=== PATIENT | male | born 1990 | race Caucasian/White ===

== ENCOUNTER 2016-10-11 17:45 | Emergency (ER) | payer OTHER ==
[~2016-10-11] VITALS: Ht 185.4 cm; Wt 95.3 kg
[~2016-10-11 17:45] MED LIST: ABILIFY 2 MG2 M1 PO; ADDERALL 15 MG15 MG PO; BUPROPION XL300 MG PO; CIALIS5 MG PO; CIPRO500 MG PO; CLONAZEPAM 1 MG1 M1 PO; CONCERTA54 M1 PO; DESYREL150 MG PO; FLAGYL500 MG PO; IBUPROFEN 400400 M2; IBUPROFEN 600600 M1 PO; LITHOBID PO; NEFAZODONE HCL50 MG PO; NORCO 5-325 TA1 EACH PO; ONDANSETRON HCL4 M2 PO; ROXICODONE PO; ROXICODONE30 MG PO; XANAX XR1 MG PO; XANAX1 MG PO; ZOFRAN ODT4 MG PO
[2016-10-11] MEDS ORDERED: LAMICTAL100 MG PO (18:06)
[2016-10-11] MEDS ORDERED: LUVOX 50MG TABL50 M1 PO (18:07)
[2016-10-11 18:41] LABS: ABSOLUTE NEUTROPHILS 4.2 thou/uL (1.4-8.2); BASOPHILS 0.6 % (0.0-2.0); EOSINOPHILS 1.9 % (0.0-3.0); HEMATOCRIT 41.6 % (42.0-52.0); HEMOGLOBIN 14.6 gm/dL (14.0-18.0); LYMPHOCYTES 28.9 % (24.0-44.0); MCHC 35.1 g/dL (28.0-37.0); MCV 88.4 fL (80.0-100.0); MONOCYTES 8.3 % (1.0-8.0); PLATELET COUNT 272 thou/uL (150-400); POLYS 60.3 % (36.0-66.0); RBC 4.71 mil/uL (4.50-6.00); RDW 12.8 % (10.5-14.5); WBC 6.9 thou/uL (4.0-11.0)
[2016-10-11 18:42] LABS: MANUAL DIFF NO
[2016-10-11 18:54] LABS: ANION GAP 10 mmol/L (7-16); BUN 11 mg/dL (7-18); CHLORIDE 105 mmol/L (98-107); CO2 25 mmol/L (21-32); GLUCOSE 88 mg/dL (74-106); POTASSIUM 3.9 mmol/L (3.5-5.1); SODIUM 140 mmol/L (136-145)
[2016-10-11 18:56] LABS: ALBUMIN 4.1 g/dL (3.4-5.0); ALKALINE PHOSPHATASE 72 U/L (46-116); SALICYLATE < 2.8 mg/dL (2.8-20.0); SGOT 19 U/L (15-37); SGPT 36 U/L (30-65); TOTAL BILIRUBIN 0.4 mg/dL (<0.1-1.0); TOTAL PROTEIN 7.5 g/dL (6.4-8.2)
[2016-10-11 18:57] LABS: ACETAMINOPHEN < 2 ug/mL (10-30)
[2016-10-11 20:09] LABS: URINE BILIRUBIN NEGATIVE (Negative); URINE BLOOD NEGATIVE (Negative); URINE COLOR YELLOW; URINE GLUCOSE-RANDOM* NEGATIVE (Negative); URINE KETONES NEGATIVE (Negative); URINE NITRITE NEGATIVE (Negative); URINE PROTEIN (DIPSTICK) NEGATIVE (Negative); URINE SPECIFIC GRAVITY 1.025 (1.003-1.035); URINE UROBILINOGEN 0.2 E.U./dl (0.2-1.0)
[2016-10-11 20:18] LABS: AMP/METHAMP Negative (Negative); BARBITURATES Negative (Negative); BENZODIAZEPINES Negative (Negative); COCAINE Negative (Negative); METHADONE Negative (Negative); OPIATES Negative (Negative); PCP Negative (Negative); THC Negative (Negative)
[2016-10-11] MEDS ORDERED: CLONAZEPAM 1 MG1 M1 PO (21:44)
[2016-10-11 21:55] VITALS: BP 121/77
== END 2016-10-11 21:56 | disposition home or self-care (01) ==
LOC: ER 17:45
PROVIDERS: Nurse Practitioner Family
DX: R45.851 Suicidal ideations (principal); F41.9 Anxiety disorder, unspecified; F31.9 Bipolar disorder, unspecified; F43.10 Post-traumatic stress disorder, unspecified; F10.99 Alcohol use, unspecified with unspecified alcohol-induced disorder

== ENCOUNTER 2017-09-15 14:11 | Emergency (ER) | payer OTHER ==
[~2017-09-15] VITALS: Ht 185.4 cm; Wt 106.6 kg
--- NOTE | ~2017-09-15 | EKG ---
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
[~2017-09-15 14:11] MED LIST changes: +LAMICTAL100 MG PO; +LUVOX 50MG TABL50 M1 PO
[2017-09-15] MEDS ORDERED: ZYPREXA 10 MG T10 MG PO (14:17)
[2017-09-15] MEDS ORDERED: INDERAL40 MG PO (14:18)
[2017-09-15] MEDS ORDERED: SONATA10 MG PO (14:18)
[2017-09-15 14:53] LABS: ABSOLUTE NEUTROPHILS 4.9 thou/uL (1.4-8.2); BASOPHILS 0.4 % (0.0-2.0); EOSINOPHILS 2.7 % (0.0-3.0); HEMATOCRIT 45.2 % (42.0-52.0); HEMOGLOBIN 15.6 gm/dL (14.0-18.0); LYMPHOCYTES 25.3 % (24.0-44.0); MCH 28.4 pg (26.0-34.0); MCHC 34.5 g/dL (28.0-37.0); MCV 82.5 fL (80.0-100.0); MONOCYTES 6.4 % (1.0-8.0); PLATELET COUNT 332 thou/uL (150-400); POLYS 65.2 % (36.0-66.0); RBC 5.47 mil/uL (4.50-6.00); RDW 13.1 % (10.5-14.5); WBC 7.5 thou/uL (4.0-11.0)
[2017-09-15 14:56] LABS: CREATININE 1.3 mg/dL (0.7-1.3); POTASSIUM 4.4 mmol/L (3.5-5.1)
[2017-09-15 16:47] VITALS: BP 116/64
== END 2017-09-15 16:48 | disposition home or self-care (01) ==
LOC: ER 14:11
PROVIDERS: Emergency Medicine
DX: R55 Syncope and collapse (principal); K92.0 Hematemesis; F41.9 Anxiety disorder, unspecified; F90.9 Attention-deficit hyperactivity disorder, unspecified type; F31.81 Bipolar II disorder; M79.7 Fibromyalgia; F42.9 Obsessive-compulsive disorder, unspecified